=== PATIENT | male | born 1985 | race Hispanic/Latino ===

== ENCOUNTER 2018-04-28 11:40 | Emergency (ER) | payer OTHER ==
[2018-04-28 12:29] LABS: #Basophils 0.1 thou/uL (0.0-0.2); #Eosinphils 0.4 thou/uL (0.0-0.7); #Lymphocytes 2.4 thou/uL (1.20-3.40); #Monocytes 0.8 thou/uL (0.11-0.59); #Neutrophils 3.6 thou/uL (1.40-6.50); %Basophils 1.1 % (0.0-1.0); %Eosinophils 5.5 % (0.0-10.0); %Lymphocytes 32.9 % (21.0-51.0); %Monocytes 11.1 % (0.0-10.0); %Neutrophils 49.5 % (42.0-75.0); Hemoglobin 16.1 g/dL (14.0-18.0); Mean Corpuscular Hemoglobin 32.6 pg (27.0-31.0); Mean Corpuscular Volume 90.7 fL (78.0-98.0); Mean Platelet Volume 5.7 fL (7.4-10.4); Platelet Count 343 thou/uL (130-400); RBC Distribution Width 11.8 % (11.5-14.5); Red Blood Cell (RBC) Count 4.92 mill/uL (4.70-6.10); White Blood Cell (WBC) Count 7.2 thou/uL (4.8-10.8)
[2018-04-28 12:38] LABS: ALT (SGPT) 21 U/L (8-55); AST (SGOT) 24 U/L (5-34); Albumin 4.7 g/dL (3.5-5.0); Alkaline Phosphatase 119 U/L (40-150); Anion Gap 16 mmol/L (10-20); BUN (Urea Nitrogen) 19 mg/dL (8.9-20.6); Bilirubin, Total 0.5 mg/dL (0.2-1.2); Calc. Creatinine Clearance 0 mL/min (70-130); Calcium 10.3 mg/dL (7.8-10.44); Carbon Dioxide 23 mmol/L (22-29); Chloride 104 mmol/L (98-107); Estimated GFR-MDRD 86; Globulin 3.4 g/dL (2.4-3.5); Glucose 98 mg/dL (70-105); Potassium 3.9 mmol/L (3.5-5.1); Protein, Total 8.1 g/dL (6.0-8.3); Sodium 139 mmol/L (136-145)
[2018-04-28] MEDS ORDERED: Ondansetron HCl/PF 4 MG/2 ML Vial ONE (12:46)
--- NOTE | 2018-04-28 12:55 | CT ---
CERVICAL SPINE CT NONCONTRAST: CLINICAL INDICATIONS: Posttraumatic injury. Neck pain. FINDINGS: Vertebral body height and alignment of the cervical spine are maintained. The craniocervical junctio n is intact. There is minimal endplate degenerative change of C5-C6 and C6-C7. IMPRESSION: No acute osseous abnormalities of the cervical spine. POS: [facility]
--- NOTE | 2018-04-28 12:59 | CT ---
CT ABDOMEN AND PELVIS WITH CONTRAST: CT LUMBAR SPINE WITH CONTRAST AND REFORMATTED IMAGING: INDICATIONS: Post traumatic pain. Injury related to fall from standing position. FINDINGS: There is mild bibasilar dependent atelectasis at the visualized lung bases. No acute post traumatic sequela of the solid abdominal viscera. The bowel is incompletely assessed without enteric contrast. There is no pneumoperitoneum or significant ascites. The unopacified urinary bladder is grossly un remarkable. The abdominal aorta is atraumatic in appearance. No retroperitoneal hematoma. CT lumbar spine exam reveals mild multilevel degenerative change. No compressed deformity or traumat ic subluxation. Partially imaged hardware seen at the left femur. IMPRESSION: No definite acute post traumatic sequelae. POS: [facility]
[2018-04-28] MEDS ORDERED: ISOVUE-370 76%-LOCM 1 ML ONE (15:20)
== END 2018-04-28 14:25 | disposition home or self-care (01) ==
LOC: EDBD 11:40 → ERS 11:40
DX: M54.5 Low back pain (principal); F17.210 Nicotine dependence, cigarettes, uncomplicated; W19.XXXA Unspecified fall, initial encounter
CPT/HCPCS: 72125; 74177; 80053; 85025; 96374; 96375; J2270; J2405